=== PATIENT | female | born 1975 | race American Indian/Alaskan Native ===

== ENCOUNTER 2016-10-22 20:33 | Emergency (ER) | payer OTHER ==
[2016-10-22 22:38] VITALS: BMI 31.3
[2016-10-22 22:42] VITALS: RESP 18
[2016-10-22 23:34] LABS: ADD MANUAL DIFF? NO
[2016-10-22 23:39] LABS: PH,URINE 6.5 (4.7-8.0); URINE BILIRUBIN NEGATIVE (NEGATIVE); URINE BLOOD MODERATE (NEGATIVE); URINE GLUCOSE (UA) NEGATIVE (NEGATIVE); URINE KETONE NEGATIVE (NEGATIVE); URINE LEUKOCYTE ESTERASE MODERATE Leu/uL (NEGATIVE); URINE PROTEIN 30 mg/dL (<30 mg/dL)
[2016-10-22 23:44] LABS: BASO # 0.07 K/mm3 (0.0-2.0); BASO % 0.8 % (0.0-3.0); EOS % 0.5 % (1.5-5.0); GRAN % 60.4 % (50.0-68.0); HEMATOCRIT 35.7 % (36.0-48.0); LYMPH # 2.4 (1.2-3.4); LYMPH % 28.6 % (22.0-35.0); MEAN CELL VOLUME 86.7 fL (80.0-105.0); MEAN CORPUSCULAR HEMOGLOBIN 29.4 pg (25.0-35.0); MEAN CORPUSCULAR HGB CONC 33.9 g/dl (31.0-37.0); MEAN PLATELET VOLUME 8.6 fl (7.0-11.0); MONO # 0.8 (0.1-0.6); MONO % 9.7 % (1.0-6.0); PLATELET COUNT 307 10^3/uL (120.0-450.0); RED CELL DISTRIBUTION WIDTH 13.7 % (11.5-14.5); WHITE BLOOD COUNT 8.4 10^3/ul (4.5-11.0)
[2016-10-22 23:46] LABS: URINE APPEARANCE SLIGHT-CLOUDY (CLEAR); URINE COLOR YELLOW (YELLOW)
[2016-10-22 23:49] LABS: ALKALINE PHOSPHATASE 200 U/L (38-133); ALT/SGPT 58 U/L (7-56); AST/SGOT 56 U/L (15-39); BILIRUBIN,TOTAL 0.6 mg/dL (0.2-1.3); BLOOD UREA NITROGEN 8 mg/dL (7-21); CALCIUM 8.7 mg/dL (8.4-10.5); CARBON DIOXIDE 28 mmol/L (21-33); CHLORIDE 96 mmol/L (98-107); GFR AFRICAN-AMERICAN > 60; GLUCOSE,RANDOM 96 mg/dL (70-110); LIPASE 112 U/L (23-300); POTASSIUM 3.9 mmol/L (3.6-5.0); SODIUM 136 mmol/L (132-148); TOTAL PROTEIN 7.8 g/dL (5.8-8.3)
[2016-10-23 00:23] LABS: URINE BACTERIA FEW (NEG)
[2016-10-23] MEDS ORDERED: Promethazine/Cod 6.25mg-10mg/5ml Syr UD PO STA (00:46)
--- NOTE | 2016-10-23 01:39 | CT ---
EXAM: CT Abdomen and Pelvis Without Intravenous Contrast CLINICAL HISTORY: 41 years old, female; Pain; Abdominal pain; Flank; Right lower quadrant (rlq); Additional info: Rlq pain TECHNIQUE: Axial computed tomography images of the abdomen and pelvis without intravenous contrast. This CT exam was performed using one or more of the following dose reduction techniques: automated exposure control, adjustment of the mA and/or kV according to patient size, and/or use of iterative reconstruction technique. Coronal and sagittal reformatted images were created and reviewed. COMPARISON: No relevant prior studies available. FINDINGS: Lower thorax: Minimal atelectasis. ABDOMEN: Liver: Unremarkable. Gallbladder and bile ducts: No calcified stones. No ductal dilation. Pancreas: Unremarkable. No ductal dilation. Spleen: No splenomegaly. Adrenals: No mass. Kidneys and ureters: Mild stranding about RIGHT kidney. No renal calculi. No hydronephrosis. Apparent mild urothelial thickening of RIGHT renal collecting system and ureter. Normal caliber ureters. Mild stranding about RIGHT ureter. Stomach and bowel: Segmental areas of underdistention of LEFT colon. No definite mural thickening. No obstruction. Appendix: Normal caliber. No inflammation. PELVIS: Bladder: Unremarkable. No stones. Reproductive: Small ovarian follicles. ABDOMEN and PELVIS: Intraperitoneal space: No significant fluid collection. No free air. Bones/joints: No acute fracture. Soft tissues: Tiny umbilical hernia containing fat. Vasculature: Unremarkable. No abdominal aortic aneurysm. Lymph nodes: No pathologically enlarged lymph nodes. IMPRESSION: 1. RIGHT perinephric/periureteral stranding concerning for infection. Correlate with urinalysis. 2. No CT evidence of obstructing urolithiasis. 3. Incidental/non-acute findings are described above.
[2016-10-23] MEDS ORDERED: cefTRIAXone 1 gm 100 ML IVPB STA (01:54)
--- NOTE | 2016-10-23 01:56 | ED PDOC ---
Arrival/HPI - General Chief Complaint: Fever Time Seen by Provider: 10/22/16 22:49 Historian: Patient - History of Present Illness Narrative History of Present Illness (Text): 10/23/16 02:01 Corey Billingsley is a 41 year old female who presents to the emergency department for evaluation of 1 week duration of fever associated with non-productive cough for a day. Patient also notes of 1 week history of right lower quadrant abdominal pain, but denies any nausea, vomiting, or diarrhea. Denies headache, dizziness, chest pain, shortness of breath, urinary symptoms or any other complaints at this time. Time/Duration: 1 week Symptom Onset: Gradual Symptom Course: Unchanged Severity Level: Mild Activities at Onset: Light Past Medical History - Provider Review Nursing Documentation Reviewed: Yes - Infectious Disease Hx of Infectious Diseases: None - Psychiatric Hx Substance Use: No - Surgical History Other/Comment: sx of cervix - Anesthesia Hx Anesthesia: Yes Hx Anesthesia Reactions: No Hx Malignant Hyperthermia: No Family/Social History - Physician Review Nursing Documentation Reviewed: Yes Family/Social History: No Known Family HX Smoking Status: Never Smoked Hx Alcohol Use: Yes Frequency of alcohol use: Socially Hx Substance Use: No Allergies/Home Meds Allergies/Adverse Reactions: Allergies No Known Allergies Allergy (Verified 10/22/16 22:38) Review of Systems - Physician Review All systems were reviewed & negative as marked: Yes - Review of Systems Constitutional: Fevers. absent: Fatigue Respiratory: Cough. absent: SOB Cardiovascular: Normal. absent: Chest Pain Gastrointestinal: Abdominal Pain (RLQ). absent: Diarrhea, Nausea, Vomiting Neurological: Normal. absent: Headache, Dizziness Psychiatric: Normal Physical Exam Vital Signs Reviewed: Yes Vital Signs Temp Pulse Resp BP Pulse Ox 10/23/16 03:08 100.1 F H 95 H 18 116/83 100 10/22/16 22:41 100.5 F H 107 H 18 133/93 H 96 Temperature: Afebrile Blood Pressure: Normal Pulse: Tachycardic Respiratory Rate: Normal Appearance: Positive for: Well-Appearing, Non-Toxic, Comfortable Pain Distress: None Mental Status: Positive for: Alert and Oriented X 3 - Systems Exam Head: Present: Atraumatic, Normocephalic Pupils: Present: PERRL Extroacular Muscles: Present: EOMI Conjunctiva: Present: Normal Respiratory/Chest: Present: Clear to Auscultation, Good Air Exchange. No: Respiratory Distress, Accessory Muscle Use Cardiovascular: Present: Regular Rate and Rhythm, Normal S1, S2. No: Murmurs Abdomen: Present: Tenderness (RLQ tenderness ), Normal Bowel Sounds. No: Distention, Peritoneal Signs Upper Extremity: Present: Normal Inspection. No: Cyanosis, Edema Lower Extremity: Present: Normal Inspection. No: Edema Neurological: Present: GCS=15, CN II-XII Intact, Speech Normal Skin: Present: Warm, Dry, Normal Color. No: Rashes Psychiatric: Present: Alert, Oriented x 3, Normal Insight, Normal Concentration Medical Decision Making ED Course and Treatment: 10/23/16 02:05 Impression: A 41 year old female who presents to the emergency department complaining of 1 week duration of fever and RLQ abdominal pain. Plan: -- CT abdomen pelvis -- Labs -- Promethazine/Codeine -- Rocephin -- Urine culture -- HCG -- Urinalysis -- Reassess and disposition Progress Notes: 10/23/16 02:07 CT abdomen pelvis results reviewed: IMPRESSION: 1. RIGHT perinephric/periureteral stranding concerning for infection. Correlate with urinalysis. 2. No CT evidence of obstructing urolithiasis. 10/23/16 03:45 On reevaluation the patient feels better and is in no acute distress. I have discussed the results and plan with the patient, who expresses understanding. Patient given the opportunity to ask question, all questions were answered and there is agreement with the plan to discharge the patient home. Patient is stable for discharge. Patient was instructed to follow up with physician/clinic in 1-2 days or return if symptoms persist/worsen or new concerning symptoms arise. Re-evaluation Time: 03:45 Reassessment Condition: Re-examined, Improved - Lab Interpretations Microbiology Results: Microbiology Results 10/22/16 23:30 Urine,Clean Catch Urine Culture - Final Gram Negative Caleb Lab Results: 10/22/16 23:30 10/22/16 23:30 Lab Results 10/22/16 23:30: WBC 8.4, RBC 4.12, Hgb 12.1, Hct 35.7 L, MCV 86.7, MCH 29.4, MCHC 33.9, RDW 13.7, Plt Count 307, MPV 8.6, Gran % 60.4, Lymph % (Auto) 28.6, [place] % (Auto) 9.7 H, Eos % (Auto) 0.5 L, Baso % (Auto) 0.8, Gran # 5.10, Lymph # 2.4, [place] # 0.8 H, Eos # 0.0, Baso # 0.07, Sodium 136, Potassium 3.9, Chloride 96 L, Carbon Dioxide 28, Anion Gap 16, BUN 8, Creatinine 1.0, Est GFR ( Amer) > 60, Est GFR (Non-Af Amer) > 60, Random Glucose 96, Calcium 8.7, Total Bilirubin 0.6, AST 56 H, ALT 58 H, Alkaline Phosphatase 200 H, Total Protein 7.8, Albumin 3.9, Globulin 3.9, Albumin/Globulin Ratio 1.0 L, Lipase 112 , Urine Color Yellow, Urine Appearance Slight-cloudy, Urine pH 6.5, Ur Specific [place] 1.010, Urine Protein 30 H, Urine Glucose (UA) Negative, Urine Ketones Negative, Urine Blood Moderate H, Urine Nitrate Negative, Urine Bilirubin Negative, Urine Urobilinogen 4.0 H, Ur Leukocyte Esterase Moderate H, Urine RBC 1 - 3, Urine WBC 5 - 10, Ur Epithelial Cells 3 - 4, Urine Bacteria Few, Urine HCG, Qual Negative I have reviewed the lab results: Yes - RAD Interpretation Narrative RAD Interpretations (Text): EXAM: CT Abdomen and Pelvis Without Intravenous Contrast FINDINGS: Lower thorax: Minimal atelectasis. ABDOMEN: Liver: Unremarkable. Gallbladder and bile ducts: No calcified stones. No ductal dilation. Pancreas: Unremarkable. No ductal dilation. Spleen: No splenomegaly. Adrenals: No mass. Kidneys and ureters: Mild stranding about RIGHT kidney. No renal calculi. No hydronephrosis. Apparent mild urothelial thickening of RIGHT renal collecting system and ureter. Normal caliber ureters. Mild stranding about RIGHT ureter. Stomach and bowel: Segmental areas of underdistention of LEFT colon. No definite mural thickening. No obstruction. Appendix: Normal caliber. No inflammation. PELVIS: Bladder: Unremarkable. No stones. Reproductive: Small ovarian follicles. ABDOMEN and PELVIS: Intraperitoneal space: No significant fluid collection. No free air. Bones/joints: No acute fracture. Soft tissues: Tiny umbilical hernia containing fat. Vasculature: Unremarkable. No abdominal aortic aneurysm. Lymph nodes: No pathologically enlarged lymph nodes. IMPRESSION: 1. RIGHT perinephric/periureteral stranding concerning for infection. Correlate with urinalysis. 2. No CT evidence of obstructing urolithiasis. 3. Incidental/non-acute findings are described above. Radiology Orders: 10/23/16 00:13 ABD & PELVIS W/O PO OR IV CONT [CT] Stat CHEST TWO VIEWS (PA/LAT) [RAD] Stat Violin Tutor: Radiologist - Medication Orders Current Medication Orders: Discontinued Medications Ceftriaxone Sodium (Rocephin 1 Gram Ivpb) 100 mls @ 200 mls/hr IVPB STAT STA PRN Reason: Protocol Stop: 10/23/16 02:23 Last Admin: 10/23/16 03:08 Dose: 200 MLS/HR eMAR Start Stop Document 10/23/16 03:08 WILLIAMS (Rec: 10/23/16 03:08 [id number]) Intravenous Solution Start Date 10/23/16 Start Time 03:08 End Date 10/23/16 End time 03:38 Total Infusion Time 30 Promethazine HCl/Codeine (Phenergan/Codeine Oral Syrup) 5 ml PO ONCE STA Stop: 10/23/16 00:47 Last Admin: 10/23/16 01:06 Dose: 5 ML - Shannanibe Statement The provider has reviewed the documentation as recorded by the Jeff Adkins Provider Attestation: All medical record entries made by the Jeff were at my direction and personally dictated by me. I have reviewed the chart and agree that the record accurately reflects my personal performance of the history, physical exam, medical decision making, and the department course for this patient. I have also personally directed, reviewed, and agree with the discharge instructions and disposition. Disposition/Present on Arrival - Present on Arrival Any Indicators Present on Arrival: No History of DVT/PE: No History of Uncontrolled Diabetes: No Urinary Catheter: No History of Decub. Ulcer: No History Surgical Site Infection Following: None - Disposition Have Diagnosis and Disposition been Completed?: Yes Diagnosis: Pyelonephritis Disposition: HOME/ ROUTINE Disposition Time: 03:46 Condition: GOOD Discharge Instructions (ExitCare): Acute Pyelonephritis (ED), Urinary Tract Infection in Women (DC) Prescriptions: Cephalexin [Keflex] 500 mg PO BID #20 capsule
[2016-10-23 03:10] VITALS: BP 116/83; PULSE 95; TEMP 100.1; O2SAT 100
--- NOTE | 2016-10-23 08:37 | RAD ---
HISTORY: cough COMPARISON: No prior. TECHNIQUE: Chest PA and lateral FINDINGS: LUNGS: No active pulmonary disease. PLEURA: No significant pleural effusion identified. No pneumothorax apparent. CARDIOVASCULAR: Normal. OSSEOUS STRUCTURES: No significant abnormalities. VISUALIZED UPPER ABDOMEN: Normal. OTHER FINDINGS: None. IMPRESSION: No active disease.
== END 2016-10-23 04:08 | disposition home or self-care (01) ==
LOC: ED 20:33
DX: N12 Tubulo-interstitial nephritis, not specified as acute or chronic (principal)
CPT/HCPCS: 71020; 74176; 80053; 81001; 83690; 84703; 85025; 87086; 96365; 99285; J0696

== ENCOUNTER 2018-04-21 06:47 | Emergency (ER) | payer OTHER ==
[2018-04-21 07:05] VITALS: RESP 18; TEMP 98; O2SAT 99
[2018-04-21 07:09] VITALS: BMI 30.5
[2018-04-21] MEDS ORDERED: Naproxen 550 mg Tab PO STA (07:25)
--- NOTE | 2018-04-21 08:01 | ED PDOC ---
Arrival/HPI - General Chief Complaint: Lower Extremity Problem/Injury Time Seen by Provider: 04/21/18 07:09 Historian: Patient - History of Present Illness Narrative History of Present Illness (Text): 04/21/18 07:23 42 year old female, with no significant past medical history, presents to the Emergency department complaining of right ankle discomfort since this morning. Patient states she was walking outside when she "missed a step" and twisted her ankle sustaining injury to the site. Patient informs radiating pain to the back of her right heel but none to her leg or toes. Patient states she was able to ambulate with some discomfort following the incident. Patient denies any fall or any other injuries. Patient denies any fever, chills, nausea, vomiting, diarrhea, abdominal pain, chest pain, shortness of breath, headache, dizziness, neck pain, back pain or any other complaints. PMD: Dr. Carlisle Time/Duration: Prior to Arrival Symptom Onset: Gradual Symptom Course: Unchanged Quality: Aching Activities at Onset: Light Context: Walking Past Medical History - Provider Review Nursing Documentation Reviewed: Yes - Infectious Disease Hx of Infectious Diseases: None - Psychiatric Hx Substance Use: No - Surgical History Other/Comment: sx of cervix - Anesthesia Hx Anesthesia: Yes Hx Anesthesia Reactions: No Hx Malignant Hyperthermia: No Family/Social History - Physician Review Nursing Documentation Reviewed: Yes Family/Social History: No Known Family HX Smoking Status: Never Smoked Hx Alcohol Use: Yes Hx Substance Use: No Allergies/Home Meds Allergies/Adverse Reactions: Allergies No Known Allergies Allergy (Verified 04/21/18 07:09) Home Medications: Home Meds Medication Instructions Recorded Confirmed Zolpidem [Ambien] 10 mg PO HS 04/21/18 04/21/18 Review of Systems - Physician Review All systems were reviewed & negative as marked: Yes - Review of Systems Constitutional: absent: Fevers Respiratory: absent: SOB, Cough Cardiovascular: absent: Chest Pain Gastrointestinal: absent: Abdominal Pain, Diarrhea, Nausea, Vomiting Musculoskeletal: Arthralgias (right ankle discomfort). absent: Back Pain, Neck Pain Neurological: absent: Headache, Dizziness Physical Exam Vital Signs Reviewed: Yes Vital Signs Temp Pulse Resp BP Pulse Ox 04/21/18 07:05 98.0 F 79 18 146/91 H 99 Temperature: Afebrile Blood Pressure: Normal Pulse: Regular Respiratory Rate: Normal Appearance: Positive for: Well-Appearing, Non-Toxic, Comfortable Pain Distress: None Mental Status: Positive for: Alert and Oriented X 3 - Systems Exam Head: Present: Atraumatic, Normocephalic Pupils: Present: PERRL Extroacular Muscles: Present: EOMI Conjunctiva: Present: Normal Neck: Present: Normal Range of Motion Respiratory/Chest: Present: Clear to Auscultation, Good Air Exchange. No: Respiratory Distress, Accessory Muscle Use Cardiovascular: Present: Regular Rate and Rhythm, Normal S1, S2. No: Murmurs Abdomen: No: Tenderness, Distention, Peritoneal Signs Back: Present: Normal Inspection Upper Extremity: Present: Normal Inspection. No: Cyanosis, Edema Lower Extremity: Present: NORMAL PULSES, Tenderness (right ankle), Swelling (right ankle), Neurovascularly Intact, Capillary Refill < 2 s. No: Edema, CALF TENDERNESS, Cyanosis Neurological: Present: GCS=15, CN II-XII Intact, Speech Normal Skin: Present: Warm, Dry, Normal Color. No: Rashes Psychiatric: Present: Alert, Oriented x 3, Normal Insight, Normal Concentration Medical Decision Making ED Course and Treatment: 04/21/18 07:25 Impression: 42 year old female presents to the Emergency department complaining of right ankle discomfort. Differential Diagnosis included but are not limited to: fracture vs. dislo cation vs. sprain Plan: -- Naproxen -- X-ray of right ankle -- X-ray of right foot -- Reassess and disposition Prior Visits: Notes and results from previous visits were reviewed. Progress Notes: 04/21/18 08:40 X-ray of right ankle and right foot reviewed by me, shows no significant changes. No fracture noted. Negative images. 04/21/18 11:47 xr neg splint crutches given by tech. outpt fu. - RAD Interpretation Radiology Orders: 04/21/18 07:23 ANKLE RIGHT 3 VIEWS ROUTINE [RAD] Stat FOOT RIGHT 3 VIEWS ROUTINE [RAD] Stat [employer] Agent: ED Physician - Medication Orders Current Medication Orders: Discontinued Medications Naproxen (Anaprox Ds) 550 mg PO STAT STA Stop: 04/21/18 07:26 - Scribe Statement The provider has reviewed the documentation as recorded by the Scribe Papito Soto. All medical record entries made by the Scribe were at my direction and personally dictated by me. I have reviewed the chart and agree that the record accurately reflects my personal performance of the history, physical exam, medical decision making, and the department course for this patient. I have also personally directed, reviewed, and agree with the discharge instructions and disposition. Disposition/Present on Arrival - Present on Arrival Any Indicators Present on Arrival: No History of DVT/PE: No History of Uncontrolled Diabetes: No Urinary Catheter: No History of Decub. Ulcer: No History Surgical Site Infection Following: None - Disposition Have Diagnosis and Disposition been Completed?: Yes Diagnosis: Ankle sprain Disposition: HOME/ ROUTINE Disposition Time: 09:00 Condition: STABLE Discharge Instructions (ExitCare): Ankle Sprain (DC) Additional Instructions: follow up with specialist. return to er with worsening symptoms or concerns. Prescriptions: RX: Naproxen 500 mg PO BID PRN #20 tab PRN Reason: Pain, Mild (1-3) Referrals: [facility] [Outside] - Follow up with primary [facility] [place] [Outside] - Follow up with primary [facility]ILY PROVID[facility] [Non-Staff] - Follow up with primary Forms: [employer] (Senegalese)
[2018-04-21 08:58] VITALS: BP 151/90; PULSE 80
--- NOTE | 2018-04-21 09:16 | RAD ---
Date of service: 04/21/2018 PROCEDURE: Right Ankle Radiographs. HISTORY: trauma COMPARISON: None FINDINGS: BONES: Normal. No fracture. JOINTS: Normal. No osteoarthritis. Ankle mortise maintained. Talar dome intact SOFT TISSUES: Normal. OTHER FINDINGS: None. IMPRESSION: Normal right ankle radiographs.
--- NOTE | 2018-04-21 09:17 | RAD ---
Date of service: 04/21/2018 PROCEDURE: Right Foot Radiographs. HISTORY: trauma COMPARISON: None. FINDINGS: BONES: Normal. No fracture. JOINTS: Normal. SOFT TISSUES: Normal. OTHER FINDINGS: None. IMPRESSION: Normal right foot radiographs.
== END 2018-04-21 09:21 | disposition home or self-care (01) ==
LOC: ED 06:47
DX: S93.401A Sprain of unspecified ligament of right ankle, initial encounter (principal); X50.1XXA Overexertion from prolonged static or awkward postures, initial encounter; Y92.89 Other specified places as the place of occurrence of the external cause